=== PATIENT | female | born 1965 | race Caucasian/White ===

== ENCOUNTER → 2018-07-29 11:55 | Outpatient (CLI) | payer MEDICAID ==
[2018-07-29 13:08] LABS: BASOPHILS 0.2 % (0-2); EOSINOPHILS 1.2 % (0-7); HEMATOCRIT 45.4 % (36.0-48.0); IMMATURE GRANULOCYTES 0.3 % (0-5); LYMPHOCYTES 31.6 % (15-50); MCH 31.3 pg (26.0-34.0); MCV 94.8 fL (80.0-100.0); MEAN PLATELET VOLUME 10.5 fL (7.4-10.4); MONOCYTES 5.6 % (2-11); NEUTROPHILS 61.1 % (40-80); PLATELET COUNT 223 10x3/uL (130-400); RBC 4.79 10x6/uL (4.00-5.40); RDW 13.9 % (11.5-14.5); WBC 10.3 10x3/uL (4.8-10.8)
[2018-07-29 13:11] LABS: ALBUMIN 3.9 g/dL (3.4-5.0); ALKALINE PHOSPHATASE 79 U/L (46-116); ALT (SGPT) 22 U/L (10-68); BILIRUBIN - TOTAL 0.27 mg/dL (0.2-1.3); CALC OSMOLALITY 274 mosm/kg (275-300); CALCIUM 8.9 mg/dL (8.5-10.1); CARBON DIOXIDE 26.3 mmol/L (21.0-32.0); CHLORIDE - SERUM 105 mmol/L (98-107); CREATININE - SERUM 0.8 mg/dL (0.6-1.3); GLUCOSE 85 mg/dL (74-106); POTASSIUM - SERUM 4.1 mmol/L (3.5-5.1); PROTEIN - SERUM 7.3 g/dL (6.4-8.2); SODIUM 139 mmol/L (136-145); UREA NITROGEN 8 mg/dL (7-18); eGFR NON AFRICAN AMERICAN 79 mL/min (90-120)
== END | disposition home or self-care (01) ==
LOC: D.LAB 11:55
PROVIDERS: Internal Medicine Gastroenterology
DX: R10.32 Left lower quadrant pain (principal); R63.4 Abnormal weight loss; Z80.0 Family history of malignant neoplasm of digestive organs; K76.0 Fatty (change of) liver, not elsewhere classified

== ENCOUNTER 2018-10-26 10:19 | Day surgery (SDC) | payer MEDICAID ==
[~2018-10-26] VITALS: Ht 154.9 cm; Wt 65.5 kg
[2018-10-26 10:55] LABS: HEMATOCRIT 47.4 % (36.0-48.0); MCH 31.2 pg (26.0-34.0); MCHC 33.8 g/dL (31.0-37.0); MCV 92.4 fL (80.0-100.0); MEAN PLATELET VOLUME 10.8 fL (7.4-10.4); RBC 5.13 10x6/uL (4.00-5.40); RDW 13.8 % (11.5-14.5); WBC 7.7 10x3/uL (4.8-10.8)
[2018-10-26] MEDS ORDERED: KLONOPIN1 MG PO (11:20)
[2018-10-26] MEDS ORDERED: PERCOCET 10-321 EAC1 PO (11:21)
[2018-10-26] MEDS ORDERED: CYCLOBENZAPRINE10 MG PO (11:22)
[2018-10-26 11:38] VITALS: Ht 154.9 cm; Wt 65.5 kg
--- NOTE | 2018-10-26 13:03 | NUR ---
1250 DR[address] REYNA GOLDBERG 1300 [place] DIET SERVED
--- NOTE | 2018-10-26 16:44 | OP ---
PATIENT NAME: RAUL KAPADIA MEDICAL RECORD: [id number] :61 [facility] DATE: SURGEON: MINDY ORELLANA DO DATE OF OPERATION: 10/26/2018 PROCEDURE: Colonoscopy with biopsy, polypectomy, and biopsy of lipoma. INDICATION FOR PROCEDURE: Family history positive for colon cancer, left lower quadrant abdominal pain, altered bowel function, abnormal weight loss, steatosis of liver. SCOPE: Olympus video pediatric colonoscope. MEDICATIONS: Propofol 290 mg IV per anesthesia. WITHDRAWAL TIME: 12 minutes. ESTIMATED BLOOD LOSS: Minimal. COMPLICATIONS: None. FINDINGS: Informed consent was given. The patient was made comfortable with the above medication. After reaching an adequate level of sedation by slow IV push, the patient was placed on her left side. A digital rectal examination was performed and was normal. The endoscope was then advanced under direct visualization through the rectum to the cecum, confirmed by the presence of the appendiceal orifice and the ileocecal valve. The endoscope was slowly withdrawn and mucosa was carefully examined. The prep quality was good. There was only one small diminutive polyp located in the sigmoid colon. It was benign appearing and removed using cold forceps completely. There was a large lipoma located in the hepatic flexure that correlates with CT findings. It appeared to be approximately 5 cm in size and was somewhat pedunculated, consistent with the submucosal fatty tumor being tugged and pulled through the colon with peristaltic movements. A single cold forceps biopsy was taken of this lipoma to confirm its benign nature. There was evidence of mild diverticulosis involving the descending and the sigmoid colon. There were no findings consistent with diverticulitis. Retroflexion was performed in the rectum with visualization of grade I internal hemorrhoids without bleeding. The endoscope was withdrawn from the patient. The patient tolerated the procedure well and there were no complications. IMPRESSION: 1. Large lipoma located in the hepatic flexure. 2. Mild diverticulosis of descending and sigmoid colon. 3. Single, benign-appearing, sessile polyp located in the sigmoid colon, status post cold forceps removal. 4. Grade I internal hemorrhoids without bleeding. PLAN AND RECOMMENDATIONS: 1. Discharge home when recovery parameters are met. 2. Follow up biopsy specimen results. 3. High-fiber diet. 4. Supplement diet with one tablespoon of fiber daily. 5. Continue MiraLAX daily or p.r.n. for constipation. 6. We will provide a prescription for dicyclomine 20 mg tablets to be taken up OPERATIVE REPORT [id number] RAUL KAPADIA to twice daily as needed for loose stools or abdominal pain and cramping. 7. Recall colonoscopy in 5 years. TRANSINT:[id number] Voice Confirmation ID: [id number] DOCUMENT ID: [id number] MINDY ORELLANA DO at 1644 CC: [id number] DICTATION DATE: 10/26/18 1240 SCIENCE LIAISON: 10/26/18 1445 [facility] 10/26/18 [id number] [place] [address]
== END 2018-10-26 13:35 | disposition home or self-care (01) ==
LOC: D.OPS 10:19
PROVIDERS: Anesthesiology; ATTEND Internal Medicine Gastroenterology
DX: D17.79 Benign lipomatous neoplasm of other sites (principal); K57.30 Diverticulosis of large intestine without perforation or abscess without bleeding; K64.0 First degree hemorrhoids; K63.5 Polyp of colon; Z01.812 Encounter for preprocedural laboratory examination